=== PATIENT | male | born 1940 | race Caucasian/White ===

== ENCOUNTER 2020-09-23 10:52 | Inpatient (IN) | payer OTHER, MEDICARE ==
[~2020-09-23] VITALS: Ht 177.8 cm; Wt 80.5 kg
[2020-09-23] MEDS ORDERED: ATOR40TA PO (11:01)
[2020-09-23] MEDS ORDERED: Aspir 8181 MG PO (11:01)
[2020-09-23] MEDS ORDERED: BENZ100A PO (11:01)
[2020-09-23] MEDS ORDERED: CARV25 PO (11:02)
[2020-09-23] MEDS ORDERED: DONEPEZIL HCL10 MG PO (11:02)
[2020-09-23] MEDS ORDERED: BASAGLAR K100 UNIT/1 SC (11:04)
[2020-09-23] MEDS ORDERED: LEVSOD75 PO (11:04)
[2020-09-23] MEDS ORDERED: FURO20 PO ×2 (11:04→22:43)
[2020-09-23] MEDS ORDERED: LOSA25 PO (11:04)
[2020-09-23] MEDS ORDERED: METF500 PO (11:05)
[2020-09-23] MEDS ORDERED: OMEP20ER PO (11:07)
[2020-09-23] MEDS ORDERED: NITR.4SL SL (11:07)
[2020-09-23] MEDS ORDERED: SPIR25 PO (11:07)
[2020-09-23] MEDS ORDERED: POTA10T PO (11:07)
[2020-09-23] MEDS ORDERED: SITA100T2 PO (11:07)
[2020-09-23] MEDS ORDERED: CARBIDOPA-LEVO1 EAC6 PO (11:08)
[2020-09-23] MEDS ORDERED: TAMS.4ER PO (11:08)
[2020-09-23 11:28] LABS: BASOPHILS ABSOLUTE AUTO 0.02 K/mm3 (0.00-0.23); BASOPHILS PERCENT AUTO 0 % (0-2); EOSINOPHILS ABSOLUTE AUTO 0.07 K/mm3 (0.00-0.68); EOSINOPHILS PERCENT AUTO 1 % (0-6); Hematocrit 38.1 % (37.0-53.0); Hemoglobin 12.5 g/dL (13.5-17.5); IMMATURE GRAN ABSOLUTE AUTO 0.04 K/mm3 (0.00-0.10); IMMATURE GRAN PERCENT AUTO 0 % (0-1); LYMPHOCYTES PERCENT AUTO 7 % (21-46); MONOCYTES ABSOLUTE AUTO 0.85 K/mm3 (0.16-1.47); MONOCYTES PERCENT AUTO 9 % (4-13); Mean Corpuscular HGB 31.3 pg (26.0-34.0); Mean Corpuscular HGB Conc 32.8 g/dL (31.5-36.5); Mean Corpuscular Volume 95 fL (80-100); Mean Platelet Volume 10.3 fL (9.1-12.4); NEUTROPHILS ABSOLUTE AUTO 8.04 K/mm3 (1.96-9.15); NEUTROPHILS PERCENT AUTO 83 % (41-73); Platelet Count 213 K/mm3 (150-400); RDW Coefficient Variation 12.5 % (11.7-14.2); RDW Standard Deviation 43.2 fL (35.1-46.3); White Blood Cell Count 9.72 K/mm3 (4.00-11.30)
[2020-09-23 11:39] LABS: Alanine Aminotransfer (ALT/SGP 83 U/L (12-78); Albumin, Blood 3.5 g/dL (3.4-5.0); Alk Phos 198 U/L (50-136); Anion Gap 6 mmol/L (6-16); Aspartate Aminotrans (AST/SGOT 376 U/L (12-37); Bilirubin, Total 1.1 mg/dL (0.1-1.0); Blood Urea Nitrogen 23 mg/dL (8-24); Bun/Creatinine Ratio 22.3 (12.0-20.0); CO2, Blood 26 mmol/L (21-32); Calcium, Blood 8.7 mg/dL (8.5-10.1); Chloride, Blood 106 mmol/L (98-108); Creatinine, Blood 1.03 mg/dL (0.60-1.20); Globulin, Blood 3.6 g/dL (2.2-4.0); Glomerular Filtration Rate >60 (60-); Glucose, Blood 135 mg/dL (70-99); Potassium, Blood 4.6 mmol/L (3.5-5.5); Sodium, Blood 138 mmol/L (136-145); Total Protein, Blood 7.1 g/dL (6.4-8.2)
[2020-09-23 13:32] LABS: Influenza A, PCR NEGATIVE (NEGATIVE); Influenza B, PCR NEGATIVE (NEGATIVE); Resp Syncytial Virus, PCR NEGATIVE (NEGATIVE); SARS-Cov-2 (COVID-19) PCR, MMC NEGATIVE (NEGATIVE)
--- NOTE | 2020-09-23 18:41 | NUR ---
ADMISSION SUMMARY PT ARRIVED TO UNIT AT APPROX 1750. PT WAS ABLE TO STAND AND AMBULATE TO BED WITH 2 PERSON ASSIST. PT IS VERY UNSTEADY ON FEET AND WEAK. PT HAS A SLIGHT L SIDED DROOP UPON ADMIT, PRESENT DOWN IN ED. PT HAS NS RUNNING @ 100 ML/HR, 1 BAG TO COMPLETE AND THEN DC. PT IS UNABLE TO COMPLETE MED REC AND MEDICAL HX. ATTEMPTED TO CALL MULTIPLE TIMES AND NO CALL BACK. WILL PASS ON TO ONCOMING RN TO HAVE TOMORROW'S DAY SHIFT RN TRY AGAIN. PT WAS ABLE TO SWALLOW WATER WITHOUT ASPIRATING AND TAKE MEDICATIONS ONE AT A TIME. PT IS CURRENTLY EATING DINNER IN BED, CALL LIGHT IS WITHIN REACH AND BED ALARM ON. WILL GIVE REPORT TO ONCOMING RN.
--- NOTE | 2020-09-23 22:20 | NUR ---
ASSUMPTION OF CARE. ESVIN IS AOX3, SLOW TO RESPOND, NO GARBLED SPEECH. [place]. REPORTS HE ALWAYS LEANS TO THE LEFT. LEFT FACIAL DROOP ONLY, NO OTHER DEFICITS NOTED AT THIS TIME. WAS ABLE TO EAT DINNER WITH NO TROUBLE, SWALLOWED PILLS WELL. LUNG SOUNDS WITH SOME WHEEZES IN THE UPPER LOBES BUT DIMINISHED IN BASES. NO PAIN. REDENSS TO BOTTOM. DENIES ANY PAIN OR DISCOMFORT. TELE REPORTS SINUS. ADMINISTERED MEDS. HE WAS ABLE TO STAND WITH ASSISTANCE TO USE URINAL, ATTENDS IS DRY. CALL LIGHT IS IN REACH, WILL CONTINUE TO MONITOR.
[2020-09-23] MEDS ORDERED: BUDE.25 INH (22:39)
[2020-09-23] MEDS ORDERED: Guaifenesin Wit10 ML PO (22:41)
[2020-09-23] MEDS ORDERED: FERSU300 PO (22:42)
[2020-09-23] MEDS ORDERED: NEOPOLHCSU BOTHEARS (22:46)
[2020-09-23] MEDS ORDERED: THERA-D2000 UNIT PO (22:52)
[2020-09-23] MEDS ORDERED: Vitamin B-12100 MCG PO (22:53)
[2020-09-23] MEDS ORDERED: DOCU100 PO (22:53)
[2020-09-23] MEDS ORDERED: GENICIN500 M1 PO (22:54)
[2020-09-23] MEDS ORDERED: DELTASONE20 MG PO (22:55)
--- NOTE | 2020-09-24 05:43 | NUR ---
SHIFT SUMMARY: AOX3, PLEASANT AND COOPERATIVE. LEFT SIDE FACIAL DROOP AND LEANS TO THE LEFT SIDE IN BED. EXTREMITITES STREGNTH IS EQUAL. NO SWALLOWING DEFICITS THAT ARE NOTED. ABLE TO TAKE FOOD AND PILLS WITH NO PROBLEMS. DENIES ANY OTHER NEUROLOGICAL SYMPTOMS. VS WNL, AFEBRILE. INCONTIENT/CONTIENT OF URINE. NO PAIN OR DISCOMFORT. 1 ASSIST TO STANDING POSITION TO USE URINAL. HAS VERY DRY HACKY COUGH, USES TESSALON PEARLS TO HELP. SLEPT WELL THROUGH OUT NIGHT. CALL LIGHT IS IN REACH AND USED APPROPRIATLY.
[2020-09-24 06:00] LABS: BASOPHILS ABSOLUTE AUTO 0.01 K/mm3 (0.00-0.23); BASOPHILS PERCENT AUTO 0 % (0-2); EOSINOPHILS ABSOLUTE AUTO 0.12 K/mm3 (0.00-0.68); EOSINOPHILS PERCENT AUTO 2 % (0-6); Hematocrit 34.4 % (37.0-53.0); Hemoglobin 11.5 g/dL (13.5-17.5); IMMATURE GRAN ABSOLUTE AUTO 0.02 K/mm3 (0.00-0.10); IMMATURE GRAN PERCENT AUTO 0 % (0-1); LYMPHOCYTES ABSOLUTE AUTO 0.76 K/mm3 (0.84-5.20); LYMPHOCYTES PERCENT AUTO 13 % (21-46); MONOCYTES ABSOLUTE AUTO 0.66 K/mm3 (0.16-1.47); MONOCYTES PERCENT AUTO 11 % (4-13); Mean Corpuscular HGB 31.2 pg (26.0-34.0); Mean Corpuscular HGB Conc 33.4 g/dL (31.5-36.5); Mean Corpuscular Volume 93 fL (80-100); Mean Platelet Volume 10.7 fL (9.1-12.4); NEUTROPHILS ABSOLUTE AUTO 4.48 K/mm3 (1.96-9.15); NEUTROPHILS PERCENT AUTO 74 % (41-73); Platelet Count 176 K/mm3 (150-400); RDW Coefficient Variation 12.5 % (11.7-14.2); RDW Standard Deviation 42.5 fL (35.1-46.3); Red Blood Cell Count 3.69 M/mm3 (4.30-5.90); White Blood Cell Count 6.05 K/mm3 (4.00-11.30)
[2020-09-24 06:10] LABS: International Normalized Ratio 1.11; Prothrombin Time Results 11.8 Sec (9.7-11.5)
[2020-09-24 06:39] LABS: Anion Gap 6 mmol/L (6-16); Blood Urea Nitrogen 22 mg/dL (8-24); CHOL/HDL RATIO 2.6; CO2, Blood 27 mmol/L (21-32); Calcium, Blood 8.4 mg/dL (8.5-10.1); Chloride, Blood 107 mmol/L (98-108); Cholesterol 75 mg/dL (50-200); Creatinine, Blood 1.05 mg/dL (0.60-1.20); Glomerular Filtration Rate >60 (60-); Glucose, Blood 72 mg/dL (70-99); HDL Cholesterol 29 mg/dL (>39); LDL/HDL RATIO 0.9; Low Density Lipoprotein Chol 26 mg/dL (0-110); Potassium, Blood 3.6 mmol/L (3.5-5.5); Sodium, Blood 140 mmol/L (136-145); Triglycerides 99 mg/dL (30-160); Very Low Density Lipoprot Chol 19 mg/dL (6-32)
--- NOTE | 2020-09-24 11:45 | NUR ---
Echocardiogram performed by Nikki Varma under my supervision.
--- NOTE | 2020-09-24 17:52 | NUR ---
SHIFT SUMMARY PT AWAKE AT START OF SHIFT. ASSISTED WITH URINAL AT BS. SOME URINARY INCONTINENCE AND URGENCY THRU OUT THE DAY. BLADDER SCAN DONE; PVR SHOWING 263, BUT PT LATER VOIDING AGAIN WELL INCONTINENT IN PULLUPS. NO CHANGES IN NEURO CHECKS. SLIGHT L SIDED FACIAL DROOP. ABLE TO WORK WITH PT/OT TODAY AND WALKED IN HALLS USING FWW. PT UP TO CHAIR FOR MEALS. DRY HACKING COUGH IMPROVED. PT DECLINED TESSALON AT TIMES HE DIDN'T NEED FREQUENTLY ANYMORE. FAMILY HERE TODAY TO VISIT WELL BRINGING IN HOME CPAP. DR VALDES NOTIFIED FOR ORDER. PT'S REPORTED THAT PT USES 1.5L O2 BLEED IN AT HS. ECHO DONE AT BS TODAY. PT'S WOULD LIKE HOSPITALIST TO CALL WITH RESULTS AND UPDATE ON PLAN OF CARE TOMORROW. MESSAGE LEFT WITH MEDIA INTERN AND WILL REPORT TO ONCOMING RN. CALL LT IN REACH. PT ABLE TO MAKE NEEDS KNOWN.
--- NOTE | 2020-09-24 21:23 | NUR ---
ASSUMPTION OF CARE. WALKED INTO ROOM TO FIND ESVIN PULLING OFF HIS TELE. HE IS AOX2 DOES NOT KNOW DATE OR MONTH. VERY [place]. PLACED TELE BACK ON PATIENT. ENCOURAGED HIM TO LEAVE IT ON. DENIES CHEST PAIN. COUGH IS IMPROVED, STILL DRY HACKING BUT NOT OFTEN. LUNG SOUNDS DIMINISHED T/O. OCCATIONAL WHEEZES. NO EDEMA. EXTREMITIES STREGNTH STILL EQUALLY WEAK. LEFT SIDED DROOP ONLY, SLOW TO RESPOND, NO OTHER NEURO DEFICITS TO NOTE. ADMINISTERED MEDS. BLOOD SUGAR IN THE 200'S. NO NEEDS NOTED. RT IN ROOM NOW SETTING UP CPAP. CALL LIGHT IS IN REACH.
--- NOTE | 2020-09-25 05:40 | NUR ---
SHIFT SUMMARY: AOX2, FORGETFUL OF TIME AND DATE. FOLLOWS DIRECTION WELL. NO NEW NEURO DEFICITS. LEFT SIDED FACIAL DROOP, OCCATIONAL GARBLED SPEECH, HUSLIA. WEAK. NO PAIN. LARGE BM. INCONTIENT/CONTINENT. BLOOD SUGAR IN THE 200'S. VS WNL. SLEPT WELL, WITH CPAP ON SATS >90%. MILD EDEMA. NO OTHER CHANGES TO NOTE. CALL LIGHT IS IN REACH.
--- NOTE | 2020-09-25 12:06 | NUR ---
called juana [phone] wrote discharge orders, she said she would head over after daughter picked her up around 1230
--- NOTE | 2020-09-25 16:32 | NUR ---
DISCARGED:pushed pt in wc down to waiting vehicle, assisted pt into back seat REVIEWED: discharge instructions, follow up apointments, medications, and stay at [facility], REMOVED: 2 iv's and tele, pt and family stated they enjoyed the stay and only had one question r/predisone which was not given to pt while here but was prescribed for home use, declined offer to contact for clarification.
== END 2020-09-25 16:18 | disposition home health service (06) | DRG 66 ==
LOC: ER 10:52 → MEDS 10:53 → ER 10:53 → MEDS 17:30
PROVIDERS: Emergency Medicine; ADMIT Internal Medicine
DX: I63.513 Cerebral infarction due to unspecified occlusion or stenosis of bilateral middle cerebral arteries (principal); Z20.822 Contact with and (suspected) exposure to COVID-19; R29.810 Facial weakness; I10 Essential (primary) hypertension; I25.10 Atherosclerotic heart disease of native coronary artery without angina pectoris; K21.9 Gastro-esophageal reflux disease without esophagitis; D50.9 Iron deficiency anemia, unspecified; E03.9 Hypothyroidism, unspecified; E87.6 Hypokalemia; G20 Parkinson's disease; F02.80 Dementia in other diseases classified elsewhere, unspecified severity, without behavioral disturbance, psychotic disturbance, mood disturbance, and anxiety; E11.9 Type 2 diabetes mellitus without complications; N40.0 Benign prostatic hyperplasia without lower urinary tract symptoms; I25.2 Old myocardial infarction; Z95.1 Presence of aortocoronary bypass graft; Z98.890 Other specified postprocedural states; Z88.8 Allergy status to other drugs, medicaments and biological substances; Z79.4 Long term (current) use of insulin; Z79.82 Long term (current) use of aspirin; Z79.899 Other long term (current) drug therapy
CPT/HCPCS: 0241U; 36415; 70450; 70496; 70498; 80048; 80053; 80061; 82947; 83036; 85025; 85610; 92610; 93005; 93010; 93306; 94640; 94760; 94762; 96372; 97110; 97116; 97162; 97165; 97530; 97535; 99285-25; A9270; G0378; J1650; J7030; Q9967